=== PATIENT | female | born 1945 | race Caucasian/White ===

== ENCOUNTER 2023-07-15 13:16 | Outpatient (AMB) | payer OTHER, SELFPAY ==
[2023-07-15 13:17] VITALS: BP 142/86; PULSE 71; O2SAT 98; BMI 29.0
--- NOTE | 2023-07-15 13:17 | A.OFFVIS_ITS ---
Intake Vital Signs 07/15/23 13:17 Height 5 ft 1 in Weight 153 lb 6 oz BMI 29.0 BP 142/86 H Blood Pressure Location Lt brachial Position Sitting Pulse 71 Pulse Source Pulse Oximeter Pulse Oximetry (%) 98 Oxygen Delivery Method Room Air Intake Visit Reasons: CKD Intake Note: Pt presents to the office today for CKD. Allergies codeine Allergy (Intermediate, Verified 07/15/23 13:23) Chest Pain Sulfa (Sulfonamide Antibiotics) Allergy (Intermediate, Verified 07/15/23 13:23) Unknown HPI HPI Comments History of Present Illness Details 76-year-old woman with a history of long standing hypertension echo in the backdrop of coronary disease. She is currently on 5 antihypertensive medications. Blood pressure has been suboptimal. She had a Doppler ultrasound back in 2019 which showed less than 60% stenosis on the right renal artery and left renal artery was apparently normal. She monitoring of blood pressure at home and start blood pressure is anywhere between 140-190 millimeter of mercury. She seems compliant with her medications. Ongoing medical problems also includes a coronary disease with the angiogram in 2019 showing 40% stenosis of proximal LAD 30% stenosis on T1 mid circumflex 15% stenosis of proximal RCA 25% CT chest showed goal calcified granulomas in the right hilar lymph node and calcified lung nodules. She has central lobar emphysematous changes with bronchiectasis. She has hyperlipidemia and currently on statins Echocardiogram in 2019 showed EF of 55-60% with akinesis of the basal mid inferior wall She is experiencing side effects from Irbesartan. No cough no history of angioedema. PFS Surgical History (Updated 07/15/23 @ 13:25 by Nani Aguila MA) History of rotator cuff surgery H/O: hysterectomy Hx of appendectomy Hx of tonsillectomy Social History (Updated 07/15/23 @ 13:24 by Nani Aguila MA) Household Members: Spouse Housing: House Alcohol intake: current Alcohol intake frequency: a few times a week Alcohol type: wine Patient Tobacco Use Status: Never used Tobacco Review of Systems Const Reports as per HPI, Denies anorexia, Denies fatigue, Denies fever(s) and Denies headache(s) Eyes Denies blurry vision ENT Denies headache(s) Card Denies chest pain, Denies pedal edema and Denies dyspnea Resp Denies cough, Denies hemoptysis and Denies dyspnea GI Denies diarrhea, Denies nausea and Denies vomiting Denies hematuria, Denies urinary frequency and Denies urinary hesitancy Neuro Denies confusion, Denies headache(s) and Denies focal weakness Psych Denies confusion Endo Denies cold intolerance, Denies fatigue and Denies polyuria Physical Exam Vital Signs: Last Vital Signs Pulse 71 07/15/23 13:17 BP 142/86 H 07/15/23 13:17 Pulse Ox 98 07/15/23 13:17 Oxygen Delivery Method Room Air 07/15/23 13:17 BMI result Body Mass Index 29.0 Const General: No confusion Nutritional Appearance: well nourished Orientation/consciousness: No confusion HEENT Head: No normal to inspection Mouth: moist mucous membranes Neck Neck: Yes supple and Yes no JVD Resp Auscultation: clear to auscultation bilaterally, no rales and rub present Cardio Jugular venous distension: no JVD Palpation: no palpable S3 and no palpable S4 Heart sounds: no rubs GI Palpation (GI): Soft to palpation and nontender Percussion: No Fluid wave present General: Yes no CVA tenderness Back/Spine/Pelvis Back: no CVA tenderness Skin General skin exam: no rashes or lesions noted Neuro General: No confusion Extrem General: Yes no pedal edema and No clubbing Results Reviewed Results Reviewed: Doppler ultrasound in March 2023 revealed pleasant 60% stenosis and right renal arteries. Left renal artery was reportedly normal. Read by Dr. Vel Pablo Recent creatinine 0.8 mg/dL and currently at baseline Alert lytes were normal Assessment & Plan Assessment & Plan (1) Renal artery stenosis: Code(s): I70.1 - Atherosclerosis of renal artery (2) HTN (hypertension): Code(s): I10 - Essential (primary) hypertension Plan Elderly woman with resistant hypertension requiring 5 antihypertensive medications. She has evidence of atherosclerosis. I suspect she has underlying renovascular disease to explain the resistant hypertension. Although the Doppler revealed only less than 60% stenosis this needs to be explored further to rule out renal artery stenosis as a potential cause for the resistant hypertension. I would refer for renal angiogram and possible angioplasty if she has significant stenosis. The meantime encouraged her to stay on a low-sodium diet. Continue current medications. Seen she had his some side effects due to irbesartan, I will switch it to losartan 100 mg and see if he is able to tolerate this. Answered all her questions Orders: Orders IR angio renal BI Today I10 - Essential (primary) hypertension, I70.1 - Atherosclerosis of renal artery Medications: New losartan 100 mg PO DAILY 30 tabs 2RF Coding Level of Care Code Tele New Pt Level 4 (06340) Diagnoses Renal artery stenosis I70.1 HTN (hypertension) I10
== END 2023-07-15 13:57 | disposition home or self-care (01) ==
LOC: HO.HKAS 13:16
PROVIDERS: PCP Internal Medicine; Visit Provider Internal Medicine Hypertension Specialist
DX: I70.1 Atherosclerosis of renal artery (principal); I10 Essential (primary) hypertension
CPT/HCPCS: 99204; 99214

== ENCOUNTER → 2023-07-15 13:16 | Outpatient (BNVA) | payer OTHER, SELFPAY | PROVIDERS: PCP Internal Medicine; Visit Provider Internal Medicine Hypertension Specialist | DX: I10 Essential (primary) hypertension (principal); I70.1 Atherosclerosis of renal artery; Z79.899 Other long term (current) drug therapy | CPT/HCPCS: 99202; 99212 ==

== ENCOUNTER 2023-08-13 11:57 | Day surgery (SDC) | payer OTHER, SELFPAY ==
[2023-08-13] VITALS (8 sets, daily range): BP systolic 147–196; BP diastolic 56–76; PULSE 58–77; RESP 20; TEMP 36.2–36.3; O2SAT 95–97
--- NOTE | ~2023-08-13 | IR_ITS ---
History: 77-year-old female with hypertension and suspected right renal artery stenosis Procedures performed: 1. Ultrasound-guided catheterization of the right common femoral artery 2. Catheterization of the proximal abdominal aorta 3. Abdominal aortography 4. Selective catheterization of the left renal artery with selective arteriography 5. Selective catheterization of the right renal artery with selective arteriography Physician: Nancie Campa MD [facility] Anesthesia: IV moderate sedation with intravenous fentanyl and Versed was administered under my direct supervision for a total of 30 minutes with continuous physiologic monitoring. 8 mL of 1% lidocaine was administered at the access site for local anesthesia Specimen: None Drain: None Estimated blood loss: Minimal Complications: None Procedure in detail: Informed and written consent was obtained. The patient was positioned supine on the angiography table with sterile preparation of both groins. Ultrasound of the right groin showed wide patency of the common femoral artery. 1% lidocaine was injected under ultrasound guidance and extended to the edge of the artery. A small incision was made in the skin with a #11 blade. Through the incision and under ultrasound guidance with permanent recordings and direct visualization of needle entry into the artery, the right common femoral artery was catheterized in a retrograde fashion. A right leg angiogram was performed through the transitional dilator showing an appropriate access and wide patency of the common femoral artery and the proximal profunda and superficial femoral arteries. Over a wire, a flush catheter was advanced to the abdominal aorta. Abdominal aortography in the anterior posterior and TRISTANIAN obliquities was performed. This did not show hemodynamically significant stenosis of the single renal arteries bilaterally. Limited evaluation the mesenteric arterial vasculature is unremarkable. A Sos 2 catheter was then used to selectively catheterize both the left and right renal arteries with selective arteriography performed in each. Overall, the arteries are widely patent. There was a subtle beaded appearance of the right renal artery, which we queried whether it represented fibromuscular dysplasia, however, it was very mild and thought to be unlikely to be FMD. There is mild plaque disease bilaterally. The left kidney appears to be asymmetrically larger than the right. Summary: Diagnostic bilateral renal arteriography demonstrating mild plaque disease, but no hemodynamically significant stenosis within the renal arterial vasculature. No treatable lesion was identified.
--- NOTE | ~2023-08-13 | IR_ITS ---
History: 77-year-old female with hypertension and suspected right renal artery stenosis Procedures performed: 1. Ultrasound-guided catheterization of the right common femoral artery 2. Catheterization of the proximal abdominal aorta 3. Abdominal aortography 4. Selective catheterization of the left renal artery with selective arteriography 5. Selective catheterization of the right renal artery with selective arteriography Physician: Nancie Campa MD [facility] Anesthesia: IV moderate sedation with intravenous fentanyl and Versed was administered under my direct supervision for a total of 30 minutes with continuous physiologic monitoring. 8 mL of 1% lidocaine was administered at the access site for local anesthesia Specimen: None Drain: None Estimated blood loss: Minimal Complications: None Procedure in detail: Informed and written consent was obtained. The patient was positioned supine on the angiography table with sterile preparation of both groins. Ultrasound of the right groin showed wide patency of the common femoral artery. 1% lidocaine was injected under ultrasound guidance and extended to the edge of the artery. A small incision was made in the skin with a #11 blade. Through the incision and under ultrasound guidance with permanent recordings and direct visualization of needle entry into the artery, the right common femoral artery was catheterized in a retrograde fashion. A right leg angiogram was performed through the transitional dilator showing an appropriate access and wide patency of the common femoral artery and the proximal profunda and superficial femoral arteries. Over a wire, a flush catheter was advanced to the abdominal aorta. Abdominal aortography in the anterior posterior and [place]GI[place] obliquities was performed. This did not show hemodynamically significant stenosis of the single renal arteries bilaterally. Limited evaluation the mesenteric arterial vasculature is unremarkable. A Sos 2 catheter was then used to selectively catheterize both the left and right renal arteries with selective arteriography performed in each. Overall, the arteries are widely patent. There was a subtle beaded appearance of the right renal artery, which we queried whether it represented fibromuscular dysplasia, however, it was very mild and thought to be unlikely to be FMD. There is mild plaque disease bilaterally. The left kidney appears to be asymmetrically larger than the right. Summary: Diagnostic bilateral renal arteriography demonstrating mild plaque disease, but no hemodynamically significant stenosis within the renal arterial vasculature. No treatable lesion was identified.
== END 2023-08-13 17:30 | disposition home or self-care (01) ==
PROVIDERS: Radiology Vascular & Interventional Radiology; PCP Internal Medicine; Visit Provider Internal Medicine Hypertension Specialist
DX: I10 Essential (primary) hypertension (principal); I70.1 Atherosclerosis of renal artery
CPT/HCPCS: 36252; 36415; 76937; 82565; 85007; 85027; 85610; 85730; 86850; 86900; 86901; 99152; 99153; C1769; C1887; J0690; J1644; J2250; J2310; J3010; Q9967

== ENCOUNTER → 2023-08-13 13:22 | Outpatient (BNV) | payer OTHER, SELFPAY | PROVIDERS: PCP Internal Medicine; Visit Provider Radiology Vascular & Interventional Radiology | DX: I70.1 Atherosclerosis of renal artery (principal) | CPT/HCPCS: 36252; 75625; 75710; 76937; 99152 ==